=== PATIENT | female | born 1985 | race Caucasian/White ===

== ENCOUNTER 2017-05-30 19:03 | Inpatient (IN) | payer OTHER ==
[2017-05-30 21:14] VITALS: BMI 20.2
--- NOTE | 2017-05-30 23:05 | HP ---
COWS - Scale Resting Pulse: 0= NC 80 or Below Sweatin=Flushed/Facial Moisture Restless Observation: 3= Extraneous Movement Pupil Size: 1= Pupils >than Normal Bone or Joint Aches: 1= Mild Discomfort Runny Nose/ Eye Tearin= Runny Nose/Eyes GI Upset > 30mins: 0= None Tremor Observation: 2= Slight Tremor Visible Yawning Observation: 1= 1-2x During Session Anxiety or Irritability: 1=Feels Anxious/Irritable Goose Flesh Skin: 3=Piloerection COWS Score: 16 CIWA Score - CIWA Score Nausea/Vomitin-Mild Nausea/No Vomiting Muscle Tremors: 2 Anxiety: 2 Agitation: 2 Paroxysmal Sweats: 2 Orientation: 2-Disoriented Date<2 days Tacttile Disturbances: 0-None Auditory Disturbances: 0-None Visual Disturbances: 0-None Headache: 1-Very Mild CIWA-Ar Total Score: 12 Admission ROS BHS - HPI Chief Complaint: Withdrawal symptoms Allergies/Adverse Reactions: Allergies Allergy/AdvReac Type Severity Reaction Status Date / Time No Known Allergies Allergy Verified 05/30/17 23:05 History of Present Illness: 31 y.o. woman with a history of heroin and alcohol dependence is here seeking detox. She reports she last completed detox 6 months ago at another facility. She does not have a significant period clean. Exam Limitations: No Limitations - Ebola screening Have you traveled outside of the country in the last 21 days: No (N) Have you had contact with anyone from an Ebola affected area: No Have you been sick,other than usual withdrawal symptoms: No Do you have a fever: No - Review of Systems Constitutional: Chills, Diaphoresis, Loss of Appetite, Changes in sleep, Unintentional Wgt. Loss EENT: reports: Tearing, Nose Congestion Respiratory: reports: Cough Cardiac: reports: No Symptoms Reported GI: reports: No Symptoms Reported : reports: No Symptoms Reported Musculoskeletal: reports: Back Pain Integumentary: reports: No Symptoms Reported Neuro: reports: No Symptoms reported Endocrine: reports: No Symptoms Reported Hematology: reports: No Symptoms Reported Psychiatric: reports: Judgement Intact, Mood/Affect Appropiate, Anxious, Depressed Other Systems: Reviewed and Negative Patient History - Patient Medical History Hx Anemia: No Hx Asthma: No Hx Chronic Obstructive Pulmonary Disease (COPD): No Hx Cancer: No Hx Cardiac Disorders: No Hx Congestive Heart Failure: No Hx Hypertension: No Hx Hypercholesterolemia: No Hx Pacemaker: No HX Cerebrovascular Accident: No Hx Seizures: No Hx Dementia: No Hx Diabetes: No Hx Gastrointestinal Disorders: No Hx Liver Disease: No Hx Genitourinary Disorders: No Hx Sexually Transmitted Disorders: Yes (Chlamydia (treated)) Hx Renal Disease (ESRD): No Hx Thyroid Disease: No Hx Human Immunodeficiency Virus (HIV): No Hx Hepatitis C: No Hx Depression: Yes Hx Suicide Attempt: No Hx Bipolar Disorder: No Hx Schizophrenia: No - Patient Surgical History Past Surgical History: No - PPD History Previous Implant?: Yes Documented Results: Negative w/o proof PPD to be Administered?: Yes - Reproductive History Patient is a Female of Child Bearing Age (11 -55 yrs old): No Last Menstrual Period: 02/20/17 LMP comment: Irregular period Patient : No - Smoking Cessation Smoking history: Current every day smoker Have you smoked in the past 12 months: Yes Aproximately how many cigarettes per day: 20 Hx Chewing Tobacco Use: No Initiated information on smoking cessation: Yes 'Breaking Loose' booklet given: 05/30/17 - Substance & Tx. History Hx Alcohol Use: Yes Hx Substance Use: Yes Substance Use Type: Alcohol, Heroin Hx Substance Use Treatment: Yes (Detox: 6 months ago. Never been to rehab. ) - Substances Abused Alcohol Route: Oral Frequency: Daily Amount used: 1/5 OF VODKA; 6 22OZ CANS OF BEER Age of first use: 21 Date of Last Use: 05/30/17 Heroin Route: Injection Frequency: Daily Amount used: 20 BAGS Age of first use: 21 Date of Last Use: 05/30/17 Family Disease History - Family Disease History Family Disease History: CA: Mother (LUNG CA- ), Other: Father (ETOH DEPENDENCE), Mother, Sister (ETOH DEPENDENCE) Admission Physical Exam BHS - Vital Signs Vital Signs: Vital Signs - 24 hr 05/30/17 21:12 Temperature 97.4 F L Pulse Rate 80 Respiratory 18 Rate Blood Pressure 114/69 - Physical General Appearance: Yes: Disheveled, Thin, Tremorous, Anxious HEENTM: Yes: Hearing grossly Normal, Normocephalic, Normal Voice Respiratory: Yes: Wheezing Neck: Yes: No masses,lesions,Nodules, Trachea in good position Breast: Yes: Breast Exam Deferred Cardiology: Yes: Regular Rhythm, Regular Rate Abdominal: Yes: Normal Bowel Sounds, Non Tender, Flat, Soft Genitourinary: Yes: Other (NO COMPLAINTS REPORTED) Back: Yes: Normal Inspection Musculoskeletal: Yes: full range of Motion, Gait Steady, Pelvis Stable Extremities: Yes: Normal Inspection, Normal Range of Motion, Non-Tender, Tremors Neurological: Yes: field producer II-XII NML intact, Alert, Motor Strength 5/5, Normal Mood /Affect, Normal Response Integumentary: Yes: Track [place] (ON NECK) Lymphatic: Yes: Within Normal Limits - Diagnostic (1) Alcohol dependence with uncomplicated withdrawal Current Visit: Yes Status: Chronic (2) Opioid dependence with withdrawal Current Visit: Yes Status: Chronic (3) Nicotine dependence Current Visit: Yes Status: Chronic (4) Bronchitis, acute Current Visit: Yes Status: Acute Cleared for Admission [facility] - Detox or Rehab [facility] Level of Care: Medically Managed Detox Regimen/Protocol: Methadone/Valium [facility] Breath Alcohol Content Breath Alcohol Content: 0 Urine Pregancy Test - Result Urine Test Results: Negative- NO Line Present Urine Drug Screen - Results Drug Screen Negative: No Urine Drug Screen Results: PHILIP-Cocaine, OPI-Opiates
[2017-05-30] MEDS ORDERED: IBUPROFEN 400 MG TABLET (FP) PO PRN (23:53)
[2017-05-30] MEDS ORDERED: NICOTINE POLACRILEX 2 MG GUM BUC PRN (23:53)
[2017-05-30] MEDS ORDERED: LOPERAMIDE HCL 2 MG CAPSULE PO PRN (23:53)
[2017-05-30] MEDS ORDERED: ACETAMINOPHEN 325 MG TABLET (FP) PO PRN (23:53)
[2017-05-30] MEDS ORDERED: MAGNESIUM CITRATE 300 ML BOTTLE PO PRN (23:53)
[2017-05-30] MEDS ORDERED: MAGNESIUM HYDROX 2400MG/30ML ORAL SUSPENSION 30 ML CUP PO PRN (23:53)
[2017-05-30] MEDS ORDERED: P-EPHED 60MG/TRIPROLIDI 2.5MG TABLET PO PRN (23:53)
[2017-05-30] MEDS ORDERED: MENTHOL/PHENOL 1 EACH UD MM PRN (23:53)
[2017-05-30] MEDS ORDERED: guaiFENesin/D-METHORPHAN HB 10 ML UNIT-DOSE CUPS PO PRN (23:53)
[2017-05-30] MEDS ORDERED: diphenhydrAMINE HCL 50 MG CAPSULE PO PRN (23:53)
[2017-05-30] MEDS ORDERED: MAG HYDROX/AL HYDROX/SIMETH 30 ML UNIT-DOSE CUP PO PRN (23:53)
[2017-05-31] MEDS ORDERED: diazePAM 5 MG TABLET PO ONE (00:02)
[2017-05-31] MEDS ORDERED: METHADONE HCL 10 MG TABLET (FOR DETOX USE ONLY) PO ONE ×3 (00:02→23:00)
[2017-05-31] MEDS: diazePAM 5 MG TABLET PO SCH ×3 (06:27→22:30)
--- NOTE | 2017-05-31 08:04 | CONSULT ---
[facility] Psychiatric Consult - Data Date of interview: 05/31/17 Admission source: [facility] Identifying data: This is 31 years old female with no psychiatric hospitalization history, intoxicated with: Alcohol, Opioids and Nicotine Substance Abuse History: - Smoking Cessation. Smoking history: Current every day smoker. Have you smoked in the past 12 months: Yes. Aproximately how many cigarettes per day: 20. Hx Chewing Tobacco Use: No. Initiated information on smoking cessation: Yes. 'Breaking Loose' booklet given: 05/30/17. - Substance & Tx. History. Hx Alcohol Use: Yes. Hx Substance Use: Yes. Substance Use Type : Alcohol, Heroin. Hx Substance Use Treatment: Yes (Detox: 6 months ago. Never been to rehab. ). - Substances Abused. Alcohol. Route: Oral. Frequency: Daily. Amount used: 1/5 OF VODKA; 6 22OZ CANS OF BEER. Age of first use: 21. Date of Last Use: 05/30/17. Heroin. Route: Injection. Frequency: Daily. Amount used: 20 BAGS. Age of first use: 21. Date of Last Use: 05/30/17 Medical History: Denies significant medical problems Psychiatric History: Denies oast psychiatric history Physical/Sexual Abuse/Trauma History: Denies Additional Comment: Observation. Detox Unit Care Protocol Mental Status Exam - Mental Status Exam Alert and Oriented to: Person Cognitive Function: Fair Patient Appearance: Unkempt Mood: Sad Affect: Flat Patient Behavior: Sedated Speech Pattern: Delayed Voice Loudness: Mildly Loud Thought Process: Circumstantial Thought Disorder: Being Controlled Hallucinations: Denies Suicidal Ideation: Denies Homicidal Ideation: Denies Insight/Judgement: Fair Sleep: Difficulty falling asleep Appetite: Fair Muscle strength/Tone: Mild Hypotonicity Gait/Station: Shuffling Additional Comments: Observation. Detox Unit Care Protocol Psychiatric Findings - Problem List ([place] 1, 2,3) (1) Alcohol dependence with uncomplicated withdrawal Current Visit: Yes Status: Chronic (2) Nicotine dependence Current Visit: Yes Status: Chronic (3) Opioid dependence with withdrawal Current Visit: Yes Status: Chronic (4) Drug-induced mood disorder Current Visit: Yes Status: Acute - Initial Treatment Plan Initial Treatment Plan: Observation. Detox Unit Care Protocol
--- NOTE | 2017-05-31 09:53 | EKG ---
Test Reason : Blood Pressure : / mmHG Vent. Rate : 067 BPM Atrial Rate : 067 BPM P-R Int : 146 ms QRS Dur : 090 ms QT Int : 442 ms P-R-T Axes : 049 059 041 degrees QTc Int : 467 ms NORMAL SINUS RHYTHM NORMAL ECG NO PREVIOUS ECGS AVAILABLE Confirmed by NADIR PALMER, MEJIA ([id number]) on 05/31/2017 9:53:05 AM Referred By: Nitin Boo Confirmed By:MEJIA SCHMITZ MD
[2017-05-31 10:08] LABS: MCH 27.8 pg (25.7-33.7); MCHC 33.4 g/dl (32.0-36.0); MEAN CELL VOLUME 83.3 fl (80-96); MEAN PLT VOLUME 8.1 fl (7.5-11.1); PLATELET COUNT 303 K/MM3 (134-434); RDW 15.2 % (11.6-15.6); WHITE BLOOD COUNT 5.6 K/mm3 (4.0-10.0)
[2017-05-31] MEDS: NICOTINE 21 MG/24 HOURS TOPICAL PATCH TD SCH (10:29)
[2017-05-31] MEDS: PRENATAL VITAMINS W/ FOLIC ACID TABLET (FP) PO SCH (10:29)
[2017-05-31] MEDS: diazePAM 5 MG TABLET PO PRN ×3 (10:30→20:34)
[2017-05-31 11:12] LABS: ALBUMIN 3.5 g/dl (3.4-5.0); ALK PHOS 90 U/L (45-117); ANION GAP 10 (8-16); BILIRUBIN,TOTAL 0.4 mg/dL (0.2-1.0); CO2 26 mmol/L (21-32); CREATININE 0.6 mg/dL (0.55-1.02); GLUCOSE,RANDOM 85 mg/dL (74-106); SGOT/AST 22 U/L (15-37); SGPT/ALT 35 U/L (12-78); TOT PROT 7.5 g/dl (6.4-8.2)
--- NOTE | 2017-05-31 11:20 | PN ---
[facility] CIWA - CIWA Score Nausea/Vomitin-No Nausea/No Vomiting Muscle Tremors: 4-Moderate,w/Arms Extend Anxiety: 3 Agitation: 4-Moderately Restless Paroxysmal Sweats: 3 Orientation: 0-Oriented Tacttile Disturbances: 0-None Auditory Disturbances: 0-None Visual Disturbances: 0-None Headache: 0-None Present CIWA-Ar Total Score: 14 BHS COWS - Scale Resting Pulse: 1= [place] 81-100 Sweatin=Flushed/Facial Moisture Restless Observation: 1= Difficult to Sit Still Pupil Size: 0= Normal to Room Light Bone or Joint Aches: 1= Mild Discomfort Runny Nose/ Eye Tearin= Runny Nose/Eyes GI Upset > 30mins: 1= Stomach Cramp Tremor Observation of Outstretched Hands: 2= Slight Tremor Visible Yawning Observation: 2= >3x During Session Anxiety or Irritability: 2=Irritable/Anxious Goose Flesh Skin: 3=Piloerection COWS Score: 17 S Progress Note (SOAP) Subjective: sweats shakes restless irritable agitation body aches interrupted sleep Objective: 05/31/17 11:19 Vital Signs Temperature 98.2 F 05/31/17 10:42 Pulse Rate 83 05/31/17 10:42 Respiratory Rate 18 05/31/17 10:42 Blood Pressure 118/64 05/31/17 10:42 O2 Sat by Pulse Oximetry (%) Laboratory Tests 05/31/17 05/31/17 07:00 07:00 WBC 5.6 RBC 4.82 Hgb 13.4 Hct 40.1 MCV 83.3 MCH 27.8 MCHC 33.4 RDW 15.2 Plt Count 303 MPV 8.1 Sodium 140 Potassium 4.4 Chloride 104 Carbon Dioxide 26 Anion Gap 10 BUN 13 Creatinine 0.6 Creat Clearance w eGFR > 60 Random Glucose 85 Calcium 9.0 Total Bilirubin 0.4 AST 22 ALT 35 Alkaline Phosphatase 90 Total Protein 7.5 Albumin 3.5 labs pending AAOx3 lying in bed no acute distress Assessment: 05/31/17 11:19 withdrawal sx Plan: continue detox increase fluids labs pending
[2017-05-31 12:01] LABS: HIV 1 & 2 AB NEGATIVE; HIV 1 AGp24 NEGATIVE
[2017-05-31] MEDS ORDERED: CYCLOBENZAPRINE HCL 10 MG TABLET (FP) PO ONE (18:30)
[2017-05-31] MEDS ORDERED: cloNIDine HCL 0.1 MG TABLET PO ONE (18:30)
[2017-05-31] MEDS: hydrOXYzine PAMOATE 50 MG CAPSULE (FP) PO PRN (19:22)
[2017-05-31 22:05] LABS: URINE APPEARANCE CLOUDY; URINE BILIRUBIN NEGATIVE (NEGATIVE); URINE BLOOD NEGATIVE (NEGATIVE); URINE COLOR YELLOW; URINE GLUCOSE (UA) NEGATIVE (NEGATIVE); URINE KETONE NEGATIVE (NEGATIVE); URINE LEUK ESTERASE NEGATIVE (NEGATIVE); URINE NITRITE NEGATIVE (NEGATIVE); URINE PROTEIN NEGATIVE (NEGATIVE); URINE UROBILINOGEN NEGATIVE mg/dL (0.2-1.0)
[2017-05-31] MEDS: THIAMINE HCL 100 MG TABLET (FP) PO SCH (22:30)
[2017-05-31] MEDS: CYCLOBENZAPRINE HCL 10 MG TABLET (FP) PO SCH (22:30)
[2017-05-31] MEDS: cloNIDine HCL 0.1 MG TABLET PO SCH (22:30)
[2017-06-01] MEDS: CYCLOBENZAPRINE HCL 10 MG TABLET (FP) PO SCH ×3 (06:44→22:56)
[2017-06-01] MEDS: diazePAM 5 MG TABLET PO SCH ×3 (06:44→23:02)
[2017-06-01] MEDS ORDERED: METHADONE HCL 10 MG TABLET (FOR DETOX USE ONLY) PO SCH (10:00)
[2017-06-01] MEDS: PRENATAL VITAMINS W/ FOLIC ACID TABLET (FP) PO SCH (10:58)
[2017-06-01] MEDS: cloNIDine HCL 0.1 MG TABLET PO SCH ×2 (10:58→22:57)
[2017-06-01] MEDS: diazePAM 5 MG TABLET PO PRN ×2 (10:59→18:28)
[2017-06-01] MEDS: NICOTINE 21 MG/24 HOURS TOPICAL PATCH TD SCH (11:00)
--- NOTE | 2017-06-01 12:42 | PN ---
[facility] CIWA - CIWA Score Nausea/Vomitin-No Nausea/No Vomiting Muscle Tremors: 4-Moderate,w/Arms Extend Anxiety: 2 Agitation: 3 Paroxysmal Sweats: 3 Orientation: 0-Oriented Tacttile Disturbances: 0-None Auditory Disturbances: 0-None Visual Disturbances: 0-None Headache: 0-None Present CIWA-Ar Total Score: 12 BHS COWS - Scale Resting Pulse: 1= [place] 81-100 Sweatin=Flushed/Facial Moisture Restless Observation: 1= Difficult to Sit Still Pupil Size: 0= Normal to Room Light Bone or Joint Aches: 2= Severe Diffuse Aches Runny Nose/ Eye Tearin= Nasal Congestion GI Upset > 30mins: 0= None Tremor Observation of Outstretched Hands: 1= Tremor [place], Not Seen Yawning Observation: 2= >3x During Session Anxiety or Irritability: 2=Irritable/Anxious Goose Flesh Skin: 3=Piloerection COWS Score: 15 [facility] Progress Note (SOAP) Subjective: sleepy tired irritable body aches interrupted sleep Objective: 06/01/17 12:40 Vital Signs Temperature 97.7 F 06/01/17 10:00 Pulse Rate 107 06/01/17 10:00 Respiratory Rate 16 06/01/17 10:00 Blood Pressure 101/76 06/01/17 10:00 O2 Sat by Pulse Oximetry (%) Laboratory Tests 05/31/17 05/31/17 05/31/17 07:00 07:00 07:00 WBC 5.6 RBC 4.82 Hgb 13.4 Hct 40.1 MCV 83.3 MCH 27.8 MCHC 33.4 RDW 15.2 Plt Count 303 MPV 8.1 Sodium Potassium Chloride Carbon Dioxide Anion Gap BUN Creatinine Creat Clearance w eGFR Random Glucose Calcium Total Bilirubin AST ALT Alkaline Phosphatase Total Protein Albumin Urine Color Urine Appearance Urine pH Ur Specific [place] Urine Protein Urine Glucose (UA) Urine Ketones Urine Blood Urine Nitrite Urine Bilirubin Urine Urobilinogen RPR Titer Hepatitis C Antibody >11.0 H HIV 1&2 Antibody Screen Negative HIV P24 Antigen Negative 05/31/17 05/31/17 05/31/17 07:00 07:00 21:46 WBC RBC Hgb Hct MCV MCH MCHC RDW Plt Count MPV Sodium 140 Potassium 4.4 Chloride 104 Carbon Dioxide 26 Anion Gap 10 BUN 13 Creatinine 0.6 Creat Clearance w eGFR > 60 Random Glucose 85 Calcium 9.0 Total Bilirubin 0.4 AST 22 ALT 35 Alkaline Phosphatase 90 Total Protein 7.5 Albumin 3.5 Urine Color Yellow Urine Appearance Cloudy Urine pH 8.0 Ur Specific [place] 1.015 Urine Protein Negative Urine Glucose (UA) Negative Urine Ketones Negative Urine Blood Negative Urine Nitrite Negative Urine Bilirubin Negative Urine Urobilinogen Negative RPR Titer Nonreactive Hepatitis C Antibody HIV 1&2 Antibody Screen HIV P24 Antigen aaox3 ambulating no acute distress Assessment: 06/01/17 12:41 withdrawal sx Plan: continue detox increase fluids
[2017-06-01] MEDS: THIAMINE HCL 100 MG TABLET (FP) PO SCH (22:56)
[2017-06-02] MEDS: diazePAM 5 MG TABLET PO PRN ×2 (07:09→17:30)
[2017-06-02] MEDS: CYCLOBENZAPRINE HCL 10 MG TABLET (FP) PO SCH ×3 (07:11→22:44)
[2017-06-02] MEDS: diazePAM 5 MG TABLET PO SCH ×2 (11:13→22:44)
[2017-06-02] MEDS: PRENATAL VITAMINS W/ FOLIC ACID TABLET (FP) PO SCH (11:13)
[2017-06-02] MEDS: NICOTINE 21 MG/24 HOURS TOPICAL PATCH TD SCH (11:13)
[2017-06-02] MEDS: METHADONE HCL 5 MG TABLET (FOR DETOX USE ONLY) PO SCH (11:13)
[2017-06-02] MEDS: cloNIDine HCL 0.1 MG TABLET PO SCH ×2 (11:13→22:43)
--- NOTE | 2017-06-02 12:35 | PN ---
BHS Progress Note (SOAP) Subjective: agitation sweats body aches Objective: 06/02/17 12:34 Vital Signs Temperature 97.3 F L 06/02/17 06:00 Pulse Rate 70 06/02/17 06:00 Respiratory Rate 18 06/02/17 06:00 Blood Pressure 115/61 06/02/17 06:00 O2 Sat by Pulse Oximetry (%) Laboratory Tests 05/31/17 05/31/17 05/31/17 07:00 07:00 07:00 WBC 5.6 RBC 4.82 Hgb 13.4 Hct 40.1 MCV 83.3 MCH 27.8 MCHC 33.4 RDW 15.2 Plt Count 303 MPV 8.1 Sodium Potassium Chloride Carbon Dioxide Anion Gap BUN Creatinine Creat Clearance w eGFR Random Glucose Calcium Total Bilirubin AST ALT Alkaline Phosphatase Total Protein Albumin Urine Color Urine Appearance Urine pH Ur Specific [place] Urine Protein Urine Glucose (UA) Urine Ketones Urine Blood Urine Nitrite Urine Bilirubin Urine Urobilinogen RPR Titer Hepatitis C Antibody >11.0 H HIV 1&2 Antibody Screen Negative HIV P24 Antigen Negative 05/31/17 05/31/17 05/31/17 07:00 07:00 21:46 WBC RBC Hgb Hct MCV MCH MCHC RDW Plt Count MPV Sodium 140 Potassium 4.4 Chloride 104 Carbon Dioxide 26 Anion Gap 10 BUN 13 Creatinine 0.6 Creat Clearance w eGFR > 60 Random Glucose 85 Calcium 9.0 Total Bilirubin 0.4 AST 22 ALT 35 Alkaline Phosphatase 90 Total Protein 7.5 Albumin 3.5 Urine Color Yellow Urine Appearance Cloudy Urine pH 8.0 Ur Specific [place] 1.015 Urine Protein Negative Urine Glucose (UA) Negative Urine Ketones Negative Urine Blood Negative Urine Nitrite Negative Urine Bilirubin Negative Urine Urobilinogen Negative RPR Titer Nonreactive Hepatitis C Antibody HIV 1&2 Antibody Screen HIV P24 Antigen aaox3 ambulating no acute distress Assessment: 06/02/17 12:35 withdrawal sx Plan: continue detox increase fluids
[2017-06-02] MEDS: THIAMINE HCL 100 MG TABLET (FP) PO SCH (22:43)
[2017-06-02] MEDS: hydrOXYzine PAMOATE 50 MG CAPSULE (FP) PO PRN (22:43)
[2017-06-03] MEDS: CYCLOBENZAPRINE HCL 10 MG TABLET (FP) PO SCH ×3 (06:20→22:57)
[2017-06-03] MEDS: cloNIDine HCL 0.1 MG TABLET PO SCH ×2 (11:12→22:57)
[2017-06-03] MEDS: diazePAM 5 MG TABLET PO SCH ×2 (11:12→22:57)
[2017-06-03] MEDS: METHADONE HCL 5 MG TABLET (FOR DETOX USE ONLY) PO SCH (11:12)
[2017-06-03] MEDS: PRENATAL VITAMINS W/ FOLIC ACID TABLET (FP) PO SCH (11:12)
[2017-06-03] MEDS: NICOTINE 21 MG/24 HOURS TOPICAL PATCH TD SCH (11:12)
--- NOTE | 2017-06-03 15:57 | PN ---
BHS Progress Note (SOAP) Subjective: ALERT,IRRITABLE,ANXIOUS,INTERRUPTED SLEEP,PAIN IN THE BODY Objective: 06/03/17 15:56 Vital Signs Temperature 97.9 F 06/03/17 11:06 Pulse Rate 90 06/03/17 11:06 Respiratory Rate 16 06/03/17 11:06 Blood Pressure 123/71 06/03/17 11:06 O2 Sat by Pulse Oximetry (%) Assessment: 06/03/17 15:56 WITHDRAWAL SYMPTOM Plan: CONTINUE DETOX
[2017-06-03] MEDS: THIAMINE HCL 100 MG TABLET (FP) PO SCH (22:57)
[2017-06-04] MEDS: CYCLOBENZAPRINE HCL 10 MG TABLET (FP) PO SCH ×3 (06:57→22:42)
[2017-06-04] MEDS ORDERED: diazePAM 5 MG TABLET PO SCH (10:00)
[2017-06-04] MEDS ORDERED: METHADONE HCL 10 MG TABLET (FOR DETOX USE ONLY) PO SCH (10:00)
[2017-06-04] MEDS: PRENATAL VITAMINS W/ FOLIC ACID TABLET (FP) PO SCH (11:08)
[2017-06-04] MEDS: NICOTINE 21 MG/24 HOURS TOPICAL PATCH TD SCH (11:08)
[2017-06-04] MEDS: cloNIDine HCL 0.1 MG TABLET PO SCH ×2 (11:08→22:42)
--- NOTE | 2017-06-04 14:17 | PN ---
BHS Progress Note (SOAP) Subjective: ALERT,IRRITABLE,ANXIOUS,INTERRUPTED SLEEP, Objective: 06/04/17 14:15 Vital Signs Temperature 96.1 F L 06/04/17 06:53 Pulse Rate 67 06/04/17 06:53 Respiratory Rate 16 06/04/17 06:53 Blood Pressure 96/52 06/04/17 06:53 O2 Sat by Pulse Oximetry (%) Assessment: 06/04/17 14:15 WITHDRAWAL SYMPTOM Plan: CONTINUE DETOX,HISTORY OF HEPATITIS C FOLLOW UP IN THE CLINIC AT [facility],SHE WILL FOLLOW UP FOR HEPATITIS C WTIH CLININ AT [facility], DISCHARGE IN AM
[2017-06-04] MEDS: THIAMINE HCL 100 MG TABLET (FP) PO SCH (22:41)
[2017-06-05] MEDS ORDERED: METHADONE HCL 5 MG TABLET (FOR DETOX USE ONLY) PO SCH (06:00)
[2017-06-05] MEDS: CYCLOBENZAPRINE HCL 10 MG TABLET (FP) PO SCH (07:08)
--- NOTE | 2017-06-05 09:28 | DS ---
[facility] Detox Discharge Summary Admission Date: 05/30/17 Discharge Date: 06/05/17 - History Present History: Alcohol Dependence, Opioid Dependence - Physical Exam Results Vital Signs: Vital Signs Temperature 96.3 F L 06/05/17 06:37 Pulse Rate 75 06/05/17 06:37 Respiratory Rate 18 06/05/17 06:37 Blood Pressure 90/50 06/05/17 06:37 O2 Sat by Pulse Oximetry (%) - Treatment Hospital Course: Detox Protocol Followed, Detoxed Safely, Responded well, Discharged Condition Good, Rehab Referral Accepted - Medication Discharge Medications: Ambulatory Orders NK [No Known Home Medication] 05/30/17 - Diagnosis (1) Bronchitis, acute Current Visit: Yes Status: Suspected (2) Alcohol dependence with uncomplicated withdrawal Current Visit: Yes Status: Chronic (3) Nicotine dependence Current Visit: Yes Status: Chronic Qualifiers: Nicotine product type: cigarettes Substance use status: uncomplicated Qualified Code(s): F17.210 - Nicotine dependence, cigarettes, uncomplicated; F17.210 - Nicotine dependence, cigarettes, uncomplicated (4) Opioid dependence with withdrawal Current Visit: Yes Status: Chronic - AMA Did Patient Leave Against Medical Advice: No
[2017-06-05 09:38] VITALS: BP 114/58; PULSE 91; TEMP 98.1
[2017-06-05] MEDS: cloNIDine HCL 0.1 MG TABLET PO SCH (09:43)
[2017-06-05] MEDS: PRENATAL VITAMINS W/ FOLIC ACID TABLET (FP) PO SCH (09:43)
[2017-06-05] MEDS: NICOTINE 21 MG/24 HOURS TOPICAL PATCH TD SCH (10:19)
[2017-06-05] MEDS: hydrOXYzine PAMOATE 50 MG CAPSULE (FP) PO PRN (10:45)
== END 2017-06-05 11:00 | disposition home or self-care (01) | DRG 773 ==
LOC: YASAS 19:03 → Y6N 23:31
PROVIDERS: ADMIT Internal Medicine; ATTEND Internal Medicine
PROC: HZ2ZZZZ Detoxification Services for Substance Abuse Treatment (ICD-10-PCS; principal; 2017-05-30)
DX: F11.23 Opioid dependence with withdrawal (principal); F10.230 Alcohol dependence with withdrawal, uncomplicated; F17.210 Nicotine dependence, cigarettes, uncomplicated; F19.24 Other psychoactive substance dependence with psychoactive substance-induced mood disorder; J20.9 Acute bronchitis, unspecified; Z87.42 Personal history of other diseases of the female genital tract
CPT/HCPCS: 36415; 80053; 81003; 85027; 86593; 86803; 87389; 87522; 93005; 93010

== ENCOUNTER 2020-04-05 23:27 | Inpatient (IN) | payer OTHER ==
[2020-04-06 00:06] VITALS: BMI 25.7
--- NOTE | 2020-04-06 01:03 | HP ---
COWS - Scale Resting Pulse: 1= NV 81-100 Sweatin=Flushed/Facial Moisture Restless Observation: 0= Sits Still Pupil Size: 0= Normal to Room Light Bone or Joint Aches: 4=Acute Joint/Muscle Pain Runny Nose/ Eye Tearin= Runny Nose/Eyes GI Upset > 30mins: 1= Stomach Cramp Tremor Observation: 4= Gross Tremor/Twitching Yawning Observation: 1= 1-2x During Session Anxiety or Irritability: 2=Irritable/Anxious Goose Flesh Skin: 0=Smooth Skin COWS Score: 17 CIWA Score Nausea/Vomitin Muscle Tremors: 4-Moderate,w/Arms Extend Anxiety: 4-Mod. Anxious/Guarded Agitation: 4-Moderately Restless Paroxysmal Sweats: 2 Orientation: 0-Oriented Tacttile Disturbances: 0-None Auditory Disturbances: 0-None Visual Disturbances: 0-None Headache: 0-None Present CIWA-Ar Total Score: 16 - Admission Criteria OASAS Guidelines: Admission for Medically Managed Detox: Requires at least one of the followin. CIWA greater than 12 2. Seizures within the past 24 hours 3. Delirium tremens within the past 24 hours 4. Hallucinations within the past 24 hours 5. Acute intervention needed for co occurring medical disorder 6. Acute intervention needed for co occurring psychiatric disorder 7. Severe withdrawal that cannot be handled at a lower level of care (continued vomiting, continued diarrhea, abnormal vital signs) requiring intravenous medication and/or fluids 8. Admitting History and Physical - Past Medical History ...LMP: 02/20/17 - Smoking History Smoking history: Current every day smoker Have you smoked in the past 12 months: Yes Aproximately how many cigarettes per day: 20 - Alcohol/Substance Use Hx Alcohol Use: Yes Admission [facility] Chief Complaint: Opioid withdrawal symptoms Allergies/Adverse Reactions: Allergies Allergy/AdvReac Type Severity Reaction Status Date / Time No Known Allergies Allergy Verified 05/30/17 23:05 History of Present Illness: 34 years old female with a long history of fentanyl dependence is seeking admission to detox. This is her second admission to [facility] and she was last admitted for the period 05/30/2017 - 06/05/2017. She was in outpatient program at [facility] and she relapsed in 2019. She reports use of 20 ba gs of Fentanyl and drinks 2 x 22oz. of liquor daily. She reports medical history of endocarditis, pelvic inflammatory disease, UTI and psych. history of depression, anxiety. She reports suicide attempt in 2016 and denies suicidal ideation at this time. She reports + eye physician aide, blackouts and denies alcohol related seizures. She is unemployed, homeless and has legal issues. Patient has bruises on bilateral hands. Exam Limitations: No Limitations - Ebola screening Have you traveled outside of the country in the last 21 days: No Have you had contact with anyone from an Ebola affected area: No Have you been sick,other than usual withdrawal symptoms: No Do you have a fever: No - Review of Systems Constitutional: Chills, Loss of Appetite, Malaise, Night Sweats, Changes in sleep EENT: reports: Sinus Pressure Respiratory: reports: No Symptoms reported Cardiac: reports: No Symptoms Reported GI: reports: Constipated, Nausea, Poor Appetite, Poor Fluid Intake, Abdominal cramping : reports: No Symptoms Reported Musculoskeletal: reports: Back Pain, Muscle Pain Integumentary: reports: Dryness, Flushing Neuro: reports: Headache, Tremors Endocrine: reports: No Symptoms Reported Hematology: reports: No Symptoms Reported Psychiatric: reports: Mood/Affect Appropiate, Orientated x3, Anxious, Depressed Other Systems: Reviewed and Negative Patient History - Patient Medical History Hx Anemia: No Hx Asthma: No Hx Chronic Obstructive Pulmonary Disease (COPD): No Hx Cancer: No Hx Cardiac Disorders: Yes (Endocarditis) Hx Congestive Heart Failure: No Hx Hypertension: No Hx Hypercholesterolemia: No Hx Pacemaker: No HX Cerebrovascular Accident: No Hx Seizures: No Hx Dementia: No Hx Diabetes: No Hx Gastrointestinal Disorders: No Hx Liver Disease: No Hx Genitourinary Disorders: Yes (UTI, PID) Hx Sexually Transmitted Disorders: Yes (Chlamydia (treated)) Hx Renal Disease (ESRD): No Hx Thyroid Disease: No Hx Human Immunodeficiency Virus (HIV): No (Negative 2020) Hx Hepatitis C: No Hx Depression: Yes Hx Suicide Attempt: No (Denies suicidal ideation at this time) Hx Bipolar Disorder: No Hx Schizophrenia: No - Patient Surgical History Past Surgical History: No Hx Neurologic Surgery: No Hx Cataract Extraction: No Hx Cardiac Surgery: No Hx Lung Surgery: No Hx Abdominal Surgery: No Hx Appendectomy: No Hx Cholecystectomy: No Hx Genitourinary Surgery: No Hx Orthopedic Surgery: No Anesthesia Reaction: No - PPD History Previous Implant?: Yes Documented Results: Negative w/proof Implanted On Prior R Admission?: Yes Date: 06/02/17 PPD to be Administered?: Yes - Reproductive History Patient is a Female of Child Bearing Age (11 -55 yrs old): Yes Last Menstrual Period: 02/20/17 - Smoking Cessation Smoking history: Current every day smoker Have you smoked in the past 12 months: Yes Aproximately how many cigarettes per day: 20 Hx Chewing Tobacco Use: No Initiated information on smoking cessation: Yes 'Breaking Loose' booklet given: 04/06/20 - Substance & Tx. History Hx Alcohol Use: Yes Hx Substance Use: Yes Substance Use Type: Alcohol, Cocaine, Opiates Hx Substance Use Treatment: Yes ([facility]) - Substances abused Alcohol Frequency: Daily Amount used: 2 x 22oz. of liquor Age of first use: 14 Date of last use: 04/05/20 Other Other (specify): FENTANYL Substance route: Injection Frequency: Daily Amount used: 20 bags Age of first use: 21 Date of last use: 04/05/20 Admission Physical Exam BHS - Vital Signs Vital Signs: Vital Signs - 24 hr 04/06/20 00:05 Temperature 97.2 F L Pulse Rate 85 Respiratory 18 Rate Blood Pressure 135/96 - Physical General Appearance: Yes: Moderate Distress, Tremorous, Irritable, Sweating, Anxious HEENTM: Yes: Within Normal Limits Respiratory: Yes: Lungs Clear, Normal Breath Sounds, No Respiratory Distress Neck: Yes: Within Normal Limits Breast: Yes: Breast Exam Deferred Cardiology: Yes: Regular Rhythm, Regular Rate Abdominal: Yes: Normal Bowel Sounds, Protuberent Genitourinary: Yes: Within Normal Limits Back: Yes: Normal Inspection Musculoskeletal: Yes: Back pain Extremities: Yes: Tremors Neurological: Yes: Within Normal Limits Integumentary: Yes: Clammy, Track Acosta (neck) Lymphatic: Yes: Within Normal Limits - Diagnostic (1) Bronchitis Current Visit: Yes Status: Chronic (2) UTI (urinary tract infection) Current Visit: Yes Status: Chronic (3) PID (acute pelvic inflammatory disease) Current Visit: Yes Status: Chronic (4) Endocarditis Current Visit: Yes Status: Chronic (5) Alcohol dependence with uncomplicated withdrawal Current Visit: Yes Status: Acute (6) Nicotine dependence Current Visit: Yes Status: Chronic Qualifiers: Nicotine product type: cigarettes Substance use status: uncomplicated Qualified Code(s): F17.210 - Nicotine dependence, cigarettes, uncomplicated (7) Opioid dependence with withdrawal Current Visit: Yes Status: Acute Cleared for Admission [facility] - Detox or Rehab [facility] Level of Care: Medically Managed Detox Regimen/Protocol: Ativan, Methadone Claeared for Rehab Admission: No Breathalyzer - Breathalyzer Breathalyzer: 0 Urine Drug Screen - Test Device Lot number: [id number] Expiration date: 12/10/21 - Control Is test valid?: Yes - Results Drug screen NEGATIVE: No Urine drug screen results: PHILIP-Cocaine, FEN-Fentanyl, MOP-Opiates Inpatient Rehab Admission - Rehab Decision to Admit Inpatient rehab admission?: No
[2020-04-06] MEDS ORDERED: BISMUTH SUBSALICYLATE 524 MG/30 ML UD PO PRN (01:15)
[2020-04-06] MEDS ORDERED: MAGNESIUM HYDROX 2400MG/30ML ORAL SUSPENSION 30 ML CUP PO PRN (01:15)
[2020-04-06] MEDS ORDERED: MAGNESIUM CITRATE 300 ML BOTTLE PO PRN (01:15)
[2020-04-06] MEDS ORDERED: ONDANSETRON *ODT* 4 MG TABLET SL ONE (01:15)
[2020-04-06] MEDS ORDERED: ACETAMINOPHEN 325 MG TABLET (FP) PO PRN ×2 (01:15)
[2020-04-06] MEDS ORDERED: MENTHOL/PHENOL 1 EACH UD MM PRN (01:15)
[2020-04-06] MEDS ORDERED: MAG HYDROX/AL HYDROX/SIMETH 30 ML UNIT-DOSE CUP PO PRN (01:15)
[2020-04-06] MEDS ORDERED: METHADONE HCL 10 MG TABLET (FOR DETOX USE ONLY) PO ONE (02:30)
[2020-04-06] MEDS: IBUPROFEN 400 MG TABLET (FP) PO PRN (03:01)
[2020-04-06] MEDS: LORazepam 1 MG TABLET PO PRN ×2 (03:01→19:26)
[2020-04-06] MEDS: LORazepam 2 MG TABLET PO SCH ×4 (06:29→22:09)
--- NOTE | 2020-04-06 10:26 | EKG ---
Test Reason : Blood Pressure : / mmHG Vent. Rate : 066 BPM Atrial Rate : 066 BPM P-R Int : 158 ms QRS Dur : 092 ms QT Int : 440 ms P-R-T Axes : 046 044 028 degrees QTc Int : 461 ms NORMAL SINUS RHYTHM ABNORMAL ECG WHEN COMPARED WITH ECG OF 30-MAY-2017 23:01, No significant changes Confirmed by Deborah Cobb ([id number]) on 04/06/2020 10:26:29 AM Referred By: BIBIANA Confirmed By:Deborah Cobb
[2020-04-06] MEDS: PRENATAL VITAMINS W/ FOLIC ACID TABLET (FP) PO SCH (10:40)
[2020-04-06] MEDS: NICOTINE 14 MG/24 HOURS TOPICAL PATCH TD SCH (10:41)
--- NOTE | 2020-04-06 14:40 | PN ---
S CIWA - CIWA Score Nausea/Vomitin-Mild Nausea/No Vomiting Muscle Tremors: 3 Anxiety: 3 Agitation: 1-Slight > Activity Paroxysmal Sweats: 2 Orientation: 0-Oriented Tacttile Disturbances: 0-None Auditory Disturbances: 0-None Visual Disturbances: 1-Very Mild Sensitivity Headache: 1-Very Mild CIWA-Ar Total Score: 12 S Progress Note (SOAP) Subjective: 34 years old female admitted on 04/06/20 for alcohol and opiate withdrawal sx management treating with ativan and methadone detox regiment sitting on the edge of the bed eating breakfast as well as lunch tolerated food well Objective: 04/06/20 14:48 Vital Signs - 24 hr 04/06/20 04/06/20 04/06/20 00:05 02:03 06:41 Temperature 97.2 F L 97.1 F L 97.4 F L Pulse Rate 85 67 64 Respiratory 18 18 18 Rate Blood Pressure 135/96 109/78 103/64 O2 Sat by Pulse 67 L 95 Oximetry (%) 04/06/20 04/06/20 04/06/20 09:00 12:56 12:57 Temperature 97.8 F 97.8 F Pulse Rate 73 66 Respiratory 18 18 Rate Blood Pressure 102/64 100/60 O2 Sat by Pulse 95 96 96 Oximetry (%) Laboratory Tests 04/06/20 00:06 POC Urine HCG, Qual Negative 04/06/20 14:49 lab pending Assessment: 04/06/20 14:49 alcohol and opiate withdrawal Plan: ativan and methadone regiments
--- NOTE | 2020-04-06 16:06 | CONSULT ---
[facility] Psychiatric Consult - Data Date of interview: 04/06/20 Admission source: [facility] Identifying data: Revisit to [facility] and admission to [address] [place] [address] for this 34 y/o female self-referred for detoxification treatment. KALANI issues : opioid (fentanyl), crack/cocaine, alcohol, nicotine, benzodiazepines (xanax, klonopin). Patient is , no children, homeless, unemployed and supported on undisclosed means. Substance Abuse History: Discussed with the patient. KALANI profile as follows : Smoking history: Current every day smoker. Have you smoked in the past 12 months: Yes. Aproximately how many cigarettes per day: 20. Hx Chewing Tobacco Use: No. Initiated information on smoking cessation: Yes. 'Breaking Loose' booklet given: 04/06/20. - Substance & Tx. History. Hx Alcohol Use: Yes. Hx Substance Use: Yes. Substance Use Type: Alcohol, Cocaine, Opiates. Hx Substance Use Treatment: Yes ([facility]). - Substances abused. Alcohol. Frequency: Daily. Amount used: 2 x 22oz. of liquor. Age of first use: 14. Date of last use: 04/05/20. Other. Other (specify): FENTANYL. Substance route: Injection. Frequency: Daily. Amount used: 20 bags. Age of first use: 21. Date of last use: 04/05/20 Medical History: Medical profile is remarkable for bronchitis, antecedent of pelvic inflammatory disease, past treatment for chlamydia, endocarditis and history of urinary tract infections. Psychiatric History: Patient endorses history of one psychiatric hospitalization, in 2007, at [facility] in the [place]. Has no recollection of diagnosis made at the time but she believes that she has " an anxiety problem, like my mother." No contact with psychiatric OPD care providers. Ms Wilson is not on prescribed psychotropic medications. She pres ents with a history of self-mutilation (last attempt occurred years ago). Physical/Sexual Abuse/Trauma History: Not discussed. Patient declines. Additional Comment: Urine drug screen results: PHILIP-Cocaine, FEN-Fentanyl, MOP- Opiates. Noted. Mental Status Exam - Mental Status Exam Alert and Oriented to: Time, Place, Person Cognitive Function: Good Patient Appearance: Well Groomed Mood: Withdrawn, Hopeful Affect: Appropriate, Normal Range Patient Behavior: Fatigued, Appropriate, Cooperative Speech Pattern: Clear, Appropriate Voice Loudness: Normal Thought Process: Intact, Goal Oriented Thought Disorder: Not Present Hallucinations: Denies Suicidal Ideation: Denies Homicidal Ideation: Denies Insight/Judgement: Poor Sleep: Poorly, Difficulty falling asleep Appetite: Good Gait/Station: Normal Psychiatric Findings - Problem List ([place] 1, 2,3) (1) Alcohol dependence with uncomplicated withdrawal Current Visit: Yes Status: Acute (2) Opioid dependence with withdrawal Current Visit: Yes Status: Acute (3) Cocaine use disorder Current Visit: Yes Status: Chronic (4) Nicotine dependence Current Visit: Yes Status: Chronic Qualifiers: Nicotine product type: cigarettes Substance use status: uncomplicated Qualified Code(s): F17.210 - Nicotine dependence, cigarettes, uncomplicated (5) Drug-induced mood disorder Current Visit: Yes Status: Acute (6) Insomnia Current Visit: Yes Status: Chronic - Initial Treatment Plan Initial Treatment Plan: Psychoeducation. Sleep hygiene. Detoxification in progress. Observation.
[2020-04-06] MEDS: NICOTINE POLACRILEX 2 MG GUM BUC PRN ×2 (16:25→19:21)
[2020-04-06] MEDS: MELATONIN 5 MG TABLETS PO SCH (22:09)
[2020-04-06] MEDS: THIAMINE HCL 100 MG TABLET (FP) PO SCH (22:09)
[2020-04-07] MEDS ORDERED: METHADONE HCL 10 MG TABLET (FOR DETOX USE ONLY) ONE (04:09)
[2020-04-07] MEDS ORDERED: METHADONE HCL 5 MG TABLET (FOR DETOX USE ONLY) ONE (04:09)
[2020-04-07] MEDS: LORazepam 1 MG TABLET PO SCH ×4 (05:35→21:59)
[2020-04-07] MEDS ORDERED: METHADONE (DETOX) 20 MG, METHADONE (DETOX) 5 MG PO ONE (06:00)
[2020-04-07] MEDS: NICOTINE POLACRILEX 2 MG GUM BUC PRN ×5 (07:35→21:51)
--- NOTE | 2020-04-07 09:16 | PN ---
S CIWA - CIWA Score Nausea/Vomitin-Mild Nausea/No Vomiting Muscle Tremors: 3 Anxiety: 2 Agitation: 2 Paroxysmal Sweats: No Perspiration Orientation: 0-Oriented Tacttile Disturbances: 0-None Auditory Disturbances: 0-None Visual Disturbances: 2-Mild Sensitivity Headache: 0-None Present CIWA-Ar Total Score: 10 BHS COWS - Scale Resting Pulse: 0= [place] 80 or Below Sweatin= No chills or Flushing Restless Observation: 0= Sits Still Pupil Size: 1= Pupils >than Normal Bone or Joint Aches: 1= Mild Discomfort Runny Nose/ Eye Tearin= Nasal Congestion GI Upset > 30mins: 2= Nausea/Diarrhea Tremor Observation of Outstretched Hands: 2= Slight Tremor Visible Yawning Observation: 1= 1-2x During Session Anxiety or Irritability: 2=Irritable/Anxious Goose Flesh Skin: 0=Smooth Skin COWS Score: 10 S Progress Note (SOAP) Subjective: 34 years old female admitted on 04/06/20 for alcohol and opiate withdrawal sx management treating with Ativan and methadone detox regiment loose stool after breakfast moist oral membrane good skin turgor ms cortés rejects antidiarrheal pharmacotherapy prefers oral fluid and resting Objective: 04/07/20 09:17 Vital Signs - 24 hr 04/06/20 04/06/20 04/06/20 12:56 12:57 16:38 Temperature 97.8 F 97.7 F Pulse Rate 66 101 H Respiratory 18 18 Rate Blood Pressure 100/60 128/85 O2 Sat by Pulse 96 96 Oximetry (%) 04/06/20 04/07/20 04/07/20 20:39 06:19 08:40 Temperature 97.5 F L 98.2 F 97.5 F L Pulse Rate 65 67 72 Respiratory 18 16 16 Rate Blood Pressure 97/67 102/69 105/74 O2 Sat by Pulse 98 99 99 Oximetry (%) Laboratory Tests 04/06/20 04/06/20 00:06 06:00 POC Urine HCG, Qual Negative COVID-19 (GRISELDA) Not detected 04/07/20 09:17 lab pending Assessment: 04/07/20 09:17 alcohol and opiate withdrawal Plan: ativan and methadone regiments
[2020-04-07 10:45] LABS: HEMATOCRIT 39.7 % (32.4-45.2); HEMOGLOBIN 13.4 GM/dL (10.7-15.3); MCH 28.8 pg (25.7-33.7); MCHC 33.8 g/dl (32.0-36.0); MEAN CELL VOLUME 85.2 fl (80-96); MEAN PLT VOLUME 8.6 fl (7.5-11.1); PLATELET COUNT 272 K/MM3 (134-434); RBC 4.66 M/mm3 (3.60-5.2); RDW 14.5 % (11.6-15.6); WHITE BLOOD COUNT 7.2 K/mm3 (4.0-10.0)
[2020-04-07 10:48] LABS: ALBUMIN 3.4 g/dl (3.4-5.0); BILIRUBIN,TOTAL 0.3 mg/dL (0.2-1); BLOOD UREA NITROGEN 20.3 mg/dL (7-18); CALCIUM 8.9 mg/dL (8.5-10.1); POTASSIUM 3.7 mmol/L (3.5-5.1)
[2020-04-07] MEDS: PRENATAL VITAMINS W/ FOLIC ACID TABLET (FP) PO SCH (10:48)
[2020-04-07] MEDS: NICOTINE 14 MG/24 HOURS TOPICAL PATCH TD SCH (10:49)
[2020-04-07] MEDS: METHOCARBAMOL 500 MG TABLET PO PRN ×2 (10:52→17:22)
[2020-04-07] MEDS: THIAMINE HCL 100 MG TABLET (FP) PO SCH (21:59)
[2020-04-07] MEDS: MELATONIN 5 MG TABLETS PO SCH (21:59)
[2020-04-08] MEDS: LORazepam 0.5 MG TABLET PO PRN ×4 (03:14→20:13)
[2020-04-08] MEDS: IBUPROFEN 400 MG TABLET (FP) PO PRN (03:14)
[2020-04-08] MEDS: METHOCARBAMOL 500 MG TABLET PO PRN ×2 (03:14→22:07)
[2020-04-08] MEDS: NICOTINE POLACRILEX 2 MG GUM BUC PRN ×6 (03:15→22:36)
[2020-04-08] MEDS: LORazepam 0.5 MG TABLET PO SCH ×4 (05:44→22:06)
--- NOTE | 2020-04-08 09:36 | PN ---
[facility] CIWA - CIWA Score Nausea/Vomitin-No Nausea/No Vomiting Muscle Tremors: 2 Anxiety: 3 Agitation: 4-Moderately Restless Paroxysmal Sweats: No Perspiration Orientation: 0-Oriented Tacttile Disturbances: 0-None Auditory Disturbances: 0-None Visual Disturbances: 0-None Headache: 0-None Present CIWA-Ar Total Score: 9 S COWS - Scale Resting Pulse: 0= SD 80 or Below Sweatin= No chills or Flushing Restless Observation: 0= Sits Still Pupil Size: 1= Pupils >than Normal Bone or Joint Aches: 1= Mild Discomfort Runny Nose/ Eye Tearin= None GI Upset > 30mins: 0= None Tremor Observation of Outstretched Hands: 2= Slight Tremor Visible Yawning Observation: 0= None Anxiety or Irritability: 2=Irritable/Anxious Goose Flesh Skin: 3=Piloerection COWS Score: 9 S Progress Note (SOAP) Subjective: 34 years old female admitted on 04/06/20 for alcohol and opiate withdrawal sx management treating with ativan and methadone detox regiments feeling anxious irritable agitative vistaril 50mg po q6h ms cortés requests clonidine health teaching on effecting bp and risk of bp below acceptable level Objective: 04/08/20 09:38 Vital Signs - 24 hr 04/07/20 04/07/20 04/07/20 12:55 16:42 20:34 Temperature 97.7 F 97.7 F 97.8 F Pulse Rate 80 65 70 Respiratory 18 18 16 Rate Blood Pressure 123/76 114/81 121/85 O2 Sat by Pulse 99 98 Oximetry (%) 04/08/20 04/08/20 06:19 08:45 Temperature 96.8 F L 97.5 F L Pulse Rate 61 58 L Respiratory 18 20 Rate Blood Pressure 124/83 115/68 O2 Sat by Pulse 99 99 Oximetry (%) Laboratory Tests 04/06/20 04/06/20 04/07/20 00:06 06:00 08:00 WBC RBC Hgb Hct MCV MCH MCHC RDW Plt Count MPV Sodium Potassium Chloride Carbon Dioxide Anion Gap BUN Creatinine Est GFR (CKD-EPI)AfAm Est GFR (CKD-EPI)NonAf Random Glucose Calcium Total Bilirubin AST ALT Alkaline Phosphatase Total Protein Albumin POC Urine HCG, Qual Negative Syphilis Serology Non-reactive COVID-19 (GRISELDA) Not detected 04/07/20 04/07/20 08:00 08:00 WBC 7.2 RBC 4.66 Hgb 13.4 Hct 39.7 MCV 85.2 MCH 28.8 MCHC 33.8 RDW 14.5 Plt Count 272 MPV 8.6 Sodium 139 Potassium 3.7 Chloride 104 Carbon Dioxide 31 Anion Gap 4 L BUN 20.3 H Creatinine 1.0 Est GFR (CKD-EPI)AfAm 86.33 Est GFR (CKD-EPI)NonAf 74.49 Random Glucose 96 Calcium 8.9 Total Bilirubin 0.3 AST 24 ALT 29 Alkaline Phosphatase 112 Total Protein 7.0 Albumin 3.4 POC Urine HCG, Qual Syphilis Serology COVID-19 (GRISELDA) lab noted bun 20.3 encourage oral fluid intake Assessment: 04/08/20 09:38 alcohol and opiate withdrawal Plan: ativan and methadone regiment
[2020-04-08] MEDS ORDERED: METHADONE HCL 10 MG TABLET (FOR DETOX USE ONLY) PO ONE (10:00)
[2020-04-08] MEDS: NICOTINE 21 MG/24 HOURS TOPICAL PATCH TD SCH (10:31)
[2020-04-08] MEDS: PRENATAL VITAMINS W/ FOLIC ACID TABLET (FP) PO SCH (10:32)
[2020-04-08] MEDS: hydrOXYzine PAMOATE 50 MG CAPSULE (FP) PO SCH ×3 (10:34→22:06)
[2020-04-08] MEDS: cloNIDine HCL 0.1 MG TABLET PO PRN ×2 (17:12→22:08)
[2020-04-08] MEDS: MELATONIN 5 MG TABLETS PO SCH (22:07)
[2020-04-08] MEDS: THIAMINE HCL 100 MG TABLET (FP) PO SCH (22:07)
[2020-04-09] MEDS ORDERED: MELATONIN 5 MG TABLETS PO ONE (02:54)
[2020-04-09] MEDS ORDERED: METHADONE HCL 10 MG TABLET (FOR DETOX USE ONLY) ONE (04:04)
[2020-04-09] MEDS ORDERED: METHADONE HCL 5 MG TABLET (FOR DETOX USE ONLY) ONE (04:05)
[2020-04-09] MEDS ORDERED: LORazepam 0.5 MG TABLET PO ONE (05:00)
[2020-04-09] MEDS: IBUPROFEN 400 MG TABLET (FP) PO PRN (05:05)
[2020-04-09] MEDS: METHOCARBAMOL 500 MG TABLET PO PRN ×4 (05:06→23:41)
[2020-04-09] MEDS ORDERED: METHADONE (DETOX) 10 MG, METHADONE (DETOX) 5 MG PO ONE (06:00)
[2020-04-09] MEDS: hydrOXYzine PAMOATE 50 MG CAPSULE (FP) PO SCH (06:25)
--- NOTE | 2020-04-09 09:39 | PN ---
S CIWA - CIWA Score Nausea/Vomitin-Mild Nausea/No Vomiting Muscle Tremors: 1-None Visible, but [place] Anxiety: 2 Agitation: 1-Slight > Activity Paroxysmal Sweats: 1-Minimal Palms Moist Orientation: 0-Oriented Tacttile Disturbances: 0-None Auditory Disturbances: 0-None Visual Disturbances: 0-None Headache: 0-None Present CIWA-Ar Total Score: 6 BHS COWS - Scale Resting Pulse: 0= [place] 80 or Below Sweatin= No chills or Flushing Restless Observation: 0= Sits Still Pupil Size: 1= Pupils >than Normal Bone or Joint Aches: 1= Mild Discomfort Runny Nose/ Eye Tearin= None GI Upset > 30mins: 1= Stomach Cramp Tremor Observation of Outstretched Hands: 2= Slight Tremor Visible Yawning Observation: 0= None Anxiety or Irritability: 1=Feels Anxious/Irritable Goose Flesh Skin: 0=Smooth Skin COWS Score: 6 S Progress Note (SOAP) Subjective: 34 years old female admitted on 04/06/20 for alcohol and opiate withdrawal sx management treating with Ativan and methadone detox regiments requests to be seen by a psychiatrist that Vistaril for anxiety is not working "opposite" effect psychiatrist referral for anxiety alterative Objective: 04/09/20 09:38 Vital Signs - 24 hr 04/08/20 04/08/20 04/08/20 13:24 16:53 20:28 Temperature 97.5 F L 98.2 F 97.1 F L Pulse Rate 68 84 66 Respiratory 18 19 17 Rate Blood Pressure 100/64 151/97 112/79 O2 Sat by Pulse 99 98 Oximetry (%) 04/09/20 04/09/20 06:22 08:44 Temperature 97.3 F L 97.2 F L Pulse Rate 57 L 62 Respiratory 18 18 Rate Blood Pressure 111/85 116/75 O2 Sat by Pulse 100 Oximetry (%) Laboratory Tests 04/06/20 04/06/20 04/07/20 00:06 06:00 08:00 WBC RBC Hgb Hct MCV MCH MCHC RDW Plt Count MPV Sodium Potassium Chloride Carbon Dioxide Anion Gap BUN Creatinine Est GFR (CKD-EPI)AfAm Est GFR (CKD-EPI)NonAf Random Glucose Calcium Total Bilirubin AST ALT Alkaline Phosphatase Total Protein Albumin POC Urine HCG, Qual Negative Syphilis Serology Non-reactive COVID-19 (GRISELDA) Not detected 04/07/20 04/07/20 08:00 08:00 WBC 7.2 RBC 4.66 Hgb 13.4 Hct 39.7 MCV 85.2 MCH 28.8 MCHC 33.8 RDW 14.5 Plt Count 272 MPV 8.6 Sodium 139 Potassium 3.7 Chloride 104 Carbon Dioxide 31 Anion Gap 4 L BUN 20.3 H Creatinine 1.0 Est GFR (CKD-EPI)AfAm 86.33 Est GFR (CKD-EPI)NonAf 74.49 Random Glucose 96 Calcium 8.9 Total Bilirubin 0.3 AST 24 ALT 29 Alkaline Phosphatase 112 Total Protein 7.0 Albumin 3.4 POC Urine HCG, Qual Syphilis Serology COVID-19 (GRISELDA) lab noted Assessment: 04/09/20 09:38 alcohol and opiate withdrawal anxiety Plan: ativan and methadone regiments psychiatrist referral
[2020-04-09] MEDS: PRENATAL VITAMINS W/ FOLIC ACID TABLET (FP) PO SCH (10:02)
[2020-04-09] MEDS: NICOTINE 21 MG/24 HOURS TOPICAL PATCH TD SCH (10:03)
[2020-04-09] MEDS: NICOTINE POLACRILEX 2 MG GUM BUC PRN ×4 (10:03→18:03)
[2020-04-09] MEDS: cloNIDine HCL 0.1 MG TABLET PO PRN ×2 (12:26→22:16)
[2020-04-09] MEDS: THIAMINE HCL 100 MG TABLET (FP) PO SCH (22:16)
[2020-04-09] MEDS: MELATONIN 5 MG TABLETS PO SCH (22:17)
[2020-04-09] MEDS ORDERED: diphenhydrAMINE HCL 25 MG CAPSULE (FP) PO ONE (22:57)
[2020-04-10] MEDS ORDERED: METHADONE HCL 10 MG TABLET (FOR DETOX USE ONLY) PO ONE (06:00)
[2020-04-10] MEDS: METHOCARBAMOL 500 MG TABLET PO PRN ×2 (06:35→17:45)
[2020-04-10] MEDS: cloNIDine HCL 0.1 MG TABLET PO PRN ×3 (07:07→22:16)
[2020-04-10] MEDS ORDERED: MASKS NR ONE (09:12)
[2020-04-10] MEDS: PRENATAL VITAMINS W/ FOLIC ACID TABLET (FP) PO SCH (09:14)
[2020-04-10] MEDS: NICOTINE 21 MG/24 HOURS TOPICAL PATCH TD SCH (09:14)
--- NOTE | 2020-04-10 10:58 | PN ---
BHS COWS - Scale Resting Pulse: 0= MA 80 or Below Sweatin= Chills/Flushing Restless Observation: 1= Difficult to Sit Still Pupil Size: 0= Normal to Room Light Bone or Joint Aches: 1= Mild Discomfort Runny Nose/ Eye Tearin= Nasal Congestion GI Upset > 30mins: 0= None Tremor Observation of Outstretched Hands: 1= Tremor [place], Not Seen Yawning Observation: 0= None Anxiety or Irritability: 1=Feels Anxious/Irritable Goose Flesh Skin: 0=Smooth Skin COWS Score: 6 BHS Progress Note (SOAP) Subjective: Mulitiple complaints: insomnia, wants extra methadone, wants split dose methadone, wants to see Psychiatry Objective: 04/10/20 11:00 PE Gnl: WDWN, in no distress MS: irritable Motor: moves limbs well Gait: steady Home Medication List Medication Instructions Recorded Confirmed Type NK [No Known Home Medication] 05/30/17 05/30/17 History Active Medications Generic Name Dose Route Start Last Admin Trade Name Nancy PRN Reason Stop Dose Admin Acetaminophen 650 mg 04/06/20 01:15 Tylenol - PO Q6H PRN PAIN LEVEL 4 - 6 Acetaminophen 650 mg 04/06/20 01:15 Tylenol - PO Q6H PRN FEVER Al Hydroxide/Mg Hydroxide 30 ml 04/06/20 01:15 Mylanta Oral Suspension - PO Q6H PRN DYSPEPSIA Bismuth Subsalicylate 524 mg 04/06/20 01:15 Pepto-Bismol - PO Q1H PRN DIARRHEA Clonidine 0.1 mg 04/09/20 12:03 04/10/20 07:07 Catapres - PO 0.1 mg Q6H PRN Administration WITHDRAWAL(CONT SUBST) Eucalyptus/Menthol/Phenol/Sorbitol 1 each 04/06/20 01:15 Cepastat Lozenge - MM 04/12/20 01:15 Q4H PRN SORE THROAT Ibuprofen 400 mg 04/06/20 01:15 04/09/20 05:05 Motrin - PO 400 mg Q6H PRN Administration PAIN LEVEL 1 - 3 Magnesium Citrate 300 ml 04/06/20 01:15 Citroma - PO Q48H PRN CONSTIPATION Magnesium Hydroxide 30 ml 04/06/20 01:15 Milk Of Magnesia - PO PRN PRN CONSTIPATION Melatonin 5 mg 04/06/20 22:00 04/09/20 22:17 Melatonin PO 5 mg HS BHARAT Administration Methadone HCl 5 mg 04/11/20 06:00 Dolophine - PO 04/11/20 06:01 ONCE@0600 ONE Methocarbamol 500 mg 04/06/20 01:15 04/10/20 06:35 Robaxin - PO 04/12/20 01:15 500 mg Q6H PRN Administration MUSCLE SPASMS Nicotine 21 mg 04/08/20 10:00 04/10/20 09:14 Nicoderm Patch - TD 21 mg DAILY BHARAT Administration Nicotine Polacrilex 2 mg 04/06/20 01:15 04/09/20 18:03 Nicorette Gum - BUC 2 mg Q2H PRN Administration NICOTINE REPLACEMENT RX Multivit/Folic Acid/Iron 1 tab 04/06/20 10:00 04/10/20 09:14 Vitamins (Sjr) - PO 1 tab DAILY BHARAT Administration Thiamine HCl 100 mg 04/06/20 22:00 04/09/20 22:16 Vitamin B1 - PO 100 mg HS BHARAT Administration Vital Signs Temperature 96.6 F L 04/10/20 08:38 Pulse Rate 58 L 04/10/20 08:38 Respiratory Rate 16 04/10/20 08:38 Blood Pressure 100/68 04/10/20 08:38 O2 Sat by Pulse Oximetry (%) 98 04/10/20 08:38 Laboratory Tests 04/06/20 04/06/20 04/07/20 00:06 06:00 08:00 WBC RBC Hgb Hct MCV MCH MCHC RDW Plt Count MPV Sodium Potassium Chloride Carbon Dioxide Anion Gap BUN Creatinine Est GFR (CKD-EPI)AfAm Est GFR (CKD-EPI)NonAf Random Glucose Calcium Total Bilirubin AST ALT Alkaline Phosphatase Total Protein Albumin POC Urine HCG, Qual Negative Syphilis Serology Non-reactive COVID-19 (GRISELDA) Not detected 04/07/20 04/07/20 08:00 08:00 WBC 7.2 RBC 4.66 Hgb 13.4 Hct 39.7 MCV 85.2 MCH 28.8 MCHC 33.8 RDW 14.5 Plt Count 272 MPV 8.6 Sodium 139 Potassium 3.7 Chloride 104 Carbon Dioxide 31 Anion Gap 4 L BUN 20.3 H Creatinine 1.0 Est GFR (CKD-EPI)AfAm 86.33 Est GFR (CKD-EPI)NonAf 74.49 Random Glucose 96 Calcium 8.9 Total Bilirubin 0.3 AST 24 ALT 29 Alkaline Phosphatase 112 Total Protein 7.0 Albumin 3.4 POC Urine HCG, Qual Syphilis Serology COVID-19 (GRISELDA) Assessment: IMP 1. Opiod use disorder 2. Alcohol use disorder 3. Insomnia 4. H/o endocarditis 5. H/o suicide attempt in 2015, no current SI Plan: 1. Methadone detox protocol, projected finish tomorrow 2. completed Ativan detox yesterday 3. Psych consult placed
--- NOTE | 2020-04-10 12:48 | PN ---
Psychiatric Progress Note Vital Signs: Vital Signs Period Temp Pulse Resp BP Sys/Sanchez Pulse Ox Last 24 Hr 96.6 F-97.3 F 55-77 16-18 100-128/68-88 98-100 Date of Session: 04/10/20 Chief Complaint:: " I am anxious." HPI: Day 5 of detoxification treatment. Called to evaluate this patient because of complaint of anxiety + insomnia. ROS: Alert and fully oriented. Anxious. Ambulatory. Steady gait. Current Medications: Active Medications Generic Name Dose Route Start Last Admin Trade Name Freq PRN Reason Stop Dose Admin Acetaminophen 650 mg 04/06/20 01:15 Tylenol - PO Q6H PRN PAIN LEVEL 4 - 6 Acetaminophen 650 mg 04/06/20 01:15 Tylenol - PO Q6H PRN FEVER Al Hydroxide/Mg Hydroxide 30 ml 04/06/20 01:15 Mylanta Oral Suspension - PO Q6H PRN DYSPEPSIA Bismuth Subsalicylate 524 mg 04/06/20 01:15 Pepto-Bismol - PO Q1H PRN DIARRHEA Clonidine 0.1 mg 04/09/20 12:03 04/10/20 07:07 Catapres - PO 0.1 mg Q6H PRN Administration WITHDRAWAL(CONT SUBST) Eucalyptus/Menthol/Phenol/Sorbitol 1 each 04/06/20 01:15 Cepastat Lozenge - MM 04/12/20 01:15 Q4H PRN SORE THROAT Ibuprofen 400 mg 04/06/20 01:15 04/09/20 05:05 Motrin - PO 400 mg Q6H PRN Administration PAIN LEVEL 1 - 3 Magnesium Citrate 300 ml 04/06/20 01:15 Citroma - PO Q48H PRN CONSTIPATION Magnesium Hydroxide 30 ml 04/06/20 01:15 Milk Of Magnesia - PO PRN PRN CONSTIPATION Melatonin 5 mg 04/06/20 22:00 04/09/20 22:17 Melatonin PO 5 mg HS BHARAT Administration Methadone HCl 5 mg 04/11/20 06:00 Dolophine - PO 04/11/20 06:01 ONCE@0600 ONE Methocarbamol 500 mg 04/06/20 01:15 04/10/20 06:35 Robaxin - PO 04/12/20 01:15 500 mg Q6H PRN Administration MUSCLE SPASMS Nicotine 21 mg 04/08/20 10:00 04/10/20 09:14 Nicoderm Patch - TD 21 mg DAILY BHARAT Administration Nicotine Polacrilex 2 mg 04/06/20 01:15 04/09/20 18:03 Nicorette Gum - BUC 2 mg Q2H PRN Administration NICOTINE REPLACEMENT RX Multivit/Folic Acid/Iron 1 tab 04/06/20 10:00 04/10/20 09:14 Vitamins (Sjr) - PO 1 tab DAILY BHARAT Administration Thiamine HCl 100 mg 04/06/20 22:00 04/09/20 22:16 Vitamin B1 - PO 100 mg HS BHARAT Administration Medication(s) Change(s): Added to the regimen : gabapentin 100 mg po tid + trazodone 50 mg po hs. Side effects/benefits of both drugs are discussed with patient. Ms Wilson is in agreement with this plan of care. Verbal consent granted to MD. Current Side Effect: No Lab tests ordered: No Lab tests reviewed: Yes Provider note:: Chart reviewed. Case discussed briefly with Dr Benjamin, source of referral. Met with the patient. Clearly anxious, jittery and medication-seeking. Patient is, however, receptive to teaching and negotiations. She agrees to the addition of trazodone + gabapentin. Ms Wilson is not suicidal or homicidal. Not psychotic. Stable mental status. Total face to face time:: 25 Mental Status Exam - Mental Status Exam Alert and Oriented to: Time, Place, Person Cognitive Function: Good Patient Appearance: Unkempt, Disheveled Mood: Nervous, Withdrawn, Anxious Affect: Mood Congruent, Labile Patient Behavior: Fatigued, Cooperative Speech Pattern: Clear, Appropriate Voice Loudness: Normal Thought Process: Intact, Goal Oriented Thought Disorder: Not Present Hallucinations: Denies Suicidal Ideation: Denies Homicidal Ideation: Denies Insight/Judgement: Poor Sleep: Poorly, Difficulty falling asleep Appetite: Good Gait/Station: Normal Psychiatric Treatment Plan - Problem List (1) Alcohol dependence with uncomplicated withdrawal Current Visit: Yes Comment: . (2) Opioid dependence with withdrawal Current Visit: Yes Comment: . (3) Cocaine use disorder Current Visit: Yes Comment: . (4) Nicotine dependence Current Visit: Yes Qualifiers: Nicotine product type: cigarettes Substance use status: uncomplicated Qualified Code(s): F17.210 - Nicotine dependence, cigarettes, uncomplicated Comment: . (5) Drug-induced mood disorder Current Visit: Yes Comment: . (6) Insomnia Current Visit: Yes Comment: .
[2020-04-10] MEDS: GABAPENTIN 100 MG CAPSULE PO SCH ×2 (14:31→22:15)
[2020-04-10] MEDS: NICOTINE POLACRILEX 2 MG GUM BUC PRN ×2 (14:32→19:41)
[2020-04-10] MEDS: IBUPROFEN 400 MG TABLET (FP) PO PRN (16:52)
[2020-04-10] MEDS ORDERED: traZODone HCL 50 MG TABLET (FP) PO SCH (22:00)
[2020-04-10] MEDS: THIAMINE HCL 100 MG TABLET (FP) PO SCH (22:15)
[2020-04-10] MEDS: MELATONIN 5 MG TABLETS PO SCH (22:16)
[2020-04-11] MEDS: GABAPENTIN 100 MG CAPSULE PO SCH (05:33)
[2020-04-11] MEDS ORDERED: METHADONE HCL 5 MG TABLET (FOR DETOX USE ONLY) PO ONE (06:00)
[2020-04-11] MEDS: IBUPROFEN 400 MG TABLET (FP) PO PRN (08:29)
[2020-04-11 13:29] VITALS: BP 103/68; PULSE 72; TEMP 96.6
--- NOTE | 2020-04-11 15:31 | DS ---
[facility] Detox Discharge Summary Admission Date: 04/06/20 Discharge Date: 04/11/20 - History Present History: Alcohol Dependence, Opioid Dependence Additional Comments: Pt is medically cleared and discharged today. Pt completed the detox protocol. Pt is encouraged to follow-up with CD program as discussed with her counselor and also to follow-up with his PMD which she verbalized understanding. Pt is alert and oriented x3 and in no acute respiratory distress, Full ROM, and ambulatory. As per counselor's note's, "The patient is schduled for discharged today(04/11/2020), however, the progress note indicated that patient was not sure as to her aftercare plan. I spoke with the patient and she reported that she wanted to be referred to [facility] or [facility] rehab and that she had spoke to the counselor on Monday, (04/10/2020) and was in formed that the paper work was submitted. The advertising copywriter placed call to [facility] and the call went to voice mail. Second call went to [facility] and spoke with Robyn at [phone]. She siad that the beds are limitted, meaning that they are filling up quickly. She took all the information on the patient. Robyn return the advertising copywriter call and she said that the pateint medicaid card is inactive and that the patient can call on Monday( 04/13/2020) and they will be able to assist her with the medicad issue". Pertinent Past History: H/o alcohol and opioid use disorder. - Physical Exam Results Vital Signs: Vital Signs Temperature 96.6 F L 04/11/20 12:56 Pulse Rate 72 04/11/20 12:56 Respiratory Rate 18 04/11/20 12:56 Blood Pressure 103/68 04/11/20 12:56 O2 Sat by Pulse Oximetry (%) 95 04/11/20 13:29 Vital Signs 04/11/20 04/11/20 04/11/20 08:37 12:56 13:29 Temperature 97.1 F L 96.6 F L Pulse Rate 60 72 Respiratory 16 18 Rate Blood Pressure 100/66 103/68 O2 Sat by Pulse 98 98 95 Oximetry (%) Laboratory Last Values WBC 7.2 K/mm3 (4.0-10.0) 04/07/20 08:00 RBC 4.66 M/mm3 (3.60-5.2) 04/07/20 08:00 Hgb 13.4 GM/dL (10.7-15.3) 04/07/20 08:00 Hct 39.7 % (32.4-45.2) 04/07/20 08:00 MCV 85.2 fl (80-96) 04/07/20 08:00 MCH 28.8 pg (25.7-33.7) 04/07/20 08:00 MCHC 33.8 g/dl (32.0-36.0) 04/07/20 08:00 RDW 14.5 % (11.6-15.6) 04/07/20 08:00 Plt Count 272 K/MM3 (134-434) 04/07/20 08:00 MPV 8.6 fl (7.5-11.1) 04/07/20 08:00 Sodium 139 mmol/L (136-145) 04/07/20 08:00 Potassium 3.7 mmol/L (3.5-5.1) 04/07/20 08:00 Chloride 104 mmol/L (98-107) 04/07/20 08:00 Carbon Dioxide 31 mmol/L (21-32) 04/07/20 08:00 Anion Gap 4 MMOL/L (8-16) L 04/07/20 08:00 BUN 20.3 mg/dL (7-18) H 04/07/20 08:00 Creatinine 1.0 mg/dL (0.55-1.3) 04/07/20 08:00 Est GFR (CKD-EPI)AfAm 86.33 04/07/20 08:00 Est GFR (CKD-EPI)NonAf 74.49 04/07/20 08:00 Random Glucose 96 mg/dL (74-106) 04/07/20 08:00 Calcium 8.9 mg/dL (8.5-10.1) 04/07/20 08:00 Total Bilirubin 0.3 mg/dL (0.2-1) 04/07/20 08:00 AST 24 U/L (15-37) 04/07/20 08:00 ALT 29 U/L (13-61) 04/07/20 08:00 Alkaline Phosphatase 112 U/L (45-117) 04/07/20 08:00 Total Protein 7.0 g/dl (6.4-8.2) 04/07/20 08:00 Albumin 3.4 g/dl (3.4-5.0) 04/07/20 08:00 POC Urine HCG, Qual Negative 04/06/20 00:06 Syphilis Serology Non-reactive (NONREACTIVE) 04/07/20 08:00 COVID-19 (GRISELDA) Not detected (Not Detected) 04/06/20 06:00 Labs noted. Pertinent Admission Physical Exam Findings: withdrawal symptoms. - Treatment Hospital Course: Detox Protocol Followed, Detoxed Safely, Responded well, Discharged Condition Good - Medication Discharge Medications: Ambulatory Orders NK [No Known Home Medication] 05/30/17 - Diagnosis (1) Alcohol dependence with uncomplicated withdrawal Current Visit: Yes Status: Acute (2) Opioid dependence with withdrawal Current Visit: Yes Status: Acute (3) Nicotine dependence Current Visit: Yes Status: Chronic Qualifiers: Nicotine product type: cigarettes Substance use status: uncomplicated Qualified Code(s): F17.210 - Nicotine dependence, cigarettes, uncomplicated - AMA Did Patient Leave Against Medical Advice: No
== END 2020-04-11 02:34 | disposition home or self-care (01) | DRG 773 ==
LOC: YASAS 23:27 → Y3N 04-06 01:35
PROVIDERS: ADMIT Allergy & Immunology; ATTEND Allergy & Immunology
PROC: HZ2ZZZZ Detoxification Services for Substance Abuse Treatment (ICD-10-PCS; principal; 2020-04-06)
DX: F11.23 Opioid dependence with withdrawal (principal); F10.230 Alcohol dependence with withdrawal, uncomplicated; F14.90 Cocaine use, unspecified, uncomplicated; F17.210 Nicotine dependence, cigarettes, uncomplicated; F19.24 Other psychoactive substance dependence with psychoactive substance-induced mood disorder; F41.9 Anxiety disorder, unspecified; G47.00 Insomnia, unspecified; Z87.440 Personal history of urinary (tract) infections; Z87.42 Personal history of other diseases of the female genital tract; Z86.79 Personal history of other diseases of the circulatory system; Z91.5 Personal history of self-harm; Z56.0 Unemployment, unspecified; Z59.0 Homelessness
CPT/HCPCS: 36415; 80053; 81025; 85027; 86780; 93005; 93010; J0735; U0003